=== PATIENT | male | born 1935 | race Caucasian/White ===

== ENCOUNTER 2019-01-30 14:08 | Emergency (ER) | payer MEDICARE, BC ==
[~2019-01-30] VITALS: Ht 182.9 cm; Wt 97.5 kg
[2019-01-30 14:08] VITALS: BP 174/94
--- NOTE | 2019-01-30 15:09 | RAD ---
EXAM: CHEST 1 VIEW History: Fall COMPARISON: 02/08/2007 TECHNIQUE: Single portable radiograph of the chest FINDINGS: The cardiac silhouette is unremarkable. Mild prominent bilateral interstitial lung markings likely chronic interstitial changes similar to prior exam. The costophrenic sulci are clear and well demarcated. IMPRESSION: Mild prominent bilateral interstitial lung markings likely chronic interstitial changes similar to prior exam. Electronically signed by: Jeffrey Prakash MD (01/30/2019 3:06 PM) [place] [id number]
--- NOTE | 2019-01-30 15:21 | RAD ---
CT head without contrast and CT cervical spine without contrast dated 01/30/2019. No comparison available. CLINICAL INDICATION: Pain after fall. TECHNIQUE: Contiguous axial imaging the head was performed from skull base to vertex. No contrast administered. In addition, axial imaging of the cervical spine acquired with thin cut coronal and sagittal reconstruction. One or more of the following individualized dose reduction techniques were utilized for this examination: 1. Automated exposure control 2. Adjustment of the mA and/or kV according to patient size 3. Use of iterative reconstruction technique. FINDINGS: Ventricles and sulci are mildly prominent for age. No midline shift or mass effect. Brain parenchyma is of normal attenuation. No hemorrhage or extra-axial collection. Posterior fossa and brainstem unremarkable. Mild mucosal thickening bilateral ethmoid air cells. The visualized paranasal sinuses and mastoid air cells are otherwise clear. No apparent calvarial abnormality. Images of the cervical spine were acquired from skull base to mid T2. Sagittal alignment is anatomic. Vertebral body heights are maintained. No prevertebral soft tissue swelling. Posterior elements are intact. Mild to moderate endplate hypertrophic changes throughout. Moderate disc space narrowing at C5-C6 and C6-C7 with uncovertebral spurring. Mild to moderate facet arthropathy. There is resultant moderate to severe bilateral foraminal stenosis at the C5-C6 and C6-C7 levels mild to moderate bilateral foraminal narrowing at C3-C4. Mild central stenosis at C5-C6 and C6-C7. Visualized soft tissue structures unremarkable. There are abscess chronic calcifications at the bilateral carotid bifurcation. Limited images of the lung apices are clear. IMPRESSION HEAD: 1. No evidence of acute intracranial hemorrhage or mass. 2. Mild chronic small vessel ischemic changes and atrophy. IMPRESSION CERVICAL SPINE: 1. No evidence of fracture or malalignment. 2. Moderate multilevel spondylosis. Electronically signed by: Gal Tapia MD (01/30/2019 3:17 PM) [id number]
--- NOTE | 2019-01-30 15:39 | PHYS DOC ---
Past Medical History Past Medical History: Diabetes-Type II, High Cholesterol, Hypertension, Other Additional Past Medical Histor: GOUT,ENLARGED PROSTATE Past Surgical History: No Surgical History Alcohol Use: None Drug Use: None Adult General Chief Complaint Chief Complaint: MECHANICAL FALL HPI HPI Patient is a 83 year old male who brought in by EMS cause of a fall. Patient state he was mowing the grass and does not remember anything after that but his states he was mowing the grass and lost his balance and had a fall and landed on his back without loss of consciousness but he was confused and did not remember the fall or vomiting daily today before his fall. Patient denies pain. Last tetanus immunization is unknown. Review of Systems Review of Systems Constitutional: Denies fever or chills [] Eyes: Denies change in visual acuity, redness, or eye pain [] HENT: Denies nasal congestion or sore throat [] Respiratory: Denies cough or shortness of breath [] Cardiovascular: No additional information not addressed in HPI [] GI: Denies abdominal pain, nausea, vomiting, bloody stools or diarrhea [] : Denies dysuria or hematuria [] Musculoskeletal: Denies back pain or joint pain [] Integument: Denies rash or skin lesions [] Neurologic: Denies headache, focal weakness or sensory changes [] Endocrine: Denies polyuria or polydipsia [] All other systems were reviewed and found to be within normal limits, except as documented in this note. Current Medications Current Medications Current Medications Medications (Trade) Dose Ordered Sig/Octavia Start Time Stop Time Status Last Admin Dose Admin Diphtheria/ Tetanus/Acell Pertussis (Boostrix) 0.5 ml ONCE ONCE 01/30/19 16:00 01/30/19 16:01 DC 01/30/19 16:27 0.5 ML Allergies Allergies Allergies Coded Allergies Type Severity Reaction Last Updated Verified No Known Drug Allergies 01/30/19 No Physical Exam Physical Exam Constitutional: Well developed, well nourished, no acute distress, non-toxic appearance. [] HENT: Normocephalic, atraumatic, bilateral external ears normal, oropharynx moist, no oral exudates, nose normal. [] Eyes: PERRLA, EOMI, conjunctiva normal, no discharge. [] Neck: Normal range of motion, no tenderness, supple, no stridor. [] Cardiovascular:Heart rate regular rhythm, no murmur [] Lungs & Thorax: Bilateral breath sounds clear to auscultation [] Abdomen: Bowel sounds normal, soft, no tenderness, no masses, no pulsatile masses. [] Skin: Warm, dry, no erythema, no rash. [] Back: Bilateral upper back contusion and abrasion, no tenderness, no CVA tenderness. [] Extremities: No tenderness, no cyanosis, no clubbing, ROM intact, no edema. [] Neurologic: Alert and oriented X 3, normal motor function, normal sensory function, no focal deficits noted. [] Psychologic: Affect normal, judgement normal, mood normal. [] Current Patient Data Vital Signs Vital Signs Date Time Temp Pulse Resp B/P (MAP) Pulse Ox O2 Delivery O2 Flow Rate FiO2 01/30/19 14:08 97.7 88 16 174/94 (120) 97 Room Air 97.7 EKG EKG [] Radiology/Procedures Radiology/Procedures [address] [address] IMAGING REPORT Signed PATIENT: RIP HINKLE ACCOUNT: [id number] : 1935 LOCATION: ER AGE: 83 SEX: M EXAM STATUS: PRE ER ORD. PHYSICIAN: GENE SAMUEL MD REASON: fall PROCEDURE: CHEST AP ONLY EXAM: CHEST 1 VIEW History: Fall COMPARISON: 02/08/2007 TECHNIQUE: Single portable radiograph of the chest FINDINGS: The cardiac silhouette is unremarkable. Mild prominent bilateral interstitial lung markings likely chronic interstitial changes similar to prior exam. The costophrenic sulci are clear and well demarcated. IMPRESSION: Mild prominent bilateral interstitial lung markings likely chronic interstitial changes similar to prior exam. Electronically signed by: Jeffrey Prakash MD (01/30/2019 3:06 PM) [facility] DICTATED and SIGNED BY: JEFFREY PRAKASH MD DATE: 01/30/[address] [address] IMAGING REPORT Signed PATIENT: RIP HINKLE ACCOUNT: [id number] : 1935 LOCATION: ER AGE: 83 SEX: M EXAM STATUS: PRE ER ORD. PHYSICIAN: GENE SAMUEL MD REASON: fall PROCEDURE: CT HEAD AND CERVICAL SPINE WO CT head without contrast and CT cervical spine without contrast dated 01/30/2019. No comparison available. CLINICAL INDICATION: Pain after fall. TECHNIQUE: Contiguous axial imaging the head was performed from skull base to vertex. No contrast administered. In addition, axial imaging of the cervical spine acquired with thin cut coronal and sagittal reconstruction. One or more of the following individualized dose reduction techniques were utilized for this examination: 1. Automated exposure control 2. Adjustment of the mA and/or kV according to patient size 3. Use of iterative reconstruction technique. FINDINGS: Ventricles and sulci are mildly prominent for age. No midline shift or mass effect. Brain parenchyma is of normal attenuation. No hemorrhage or extra-axial collection. Posterior fossa and brainstem unremarkable. Mild mucosal thickening bilateral ethmoid air cells. The visualized paranasal sinuses and mastoid air cells are otherwise clear. No apparent calvarial abnormality. Images of the cervical spine were acquired from skull base to mid T2. Sagittal alignment is anatomic. Vertebral body heights are maintained. No prevertebral soft tissue swelling. Posterior elements are intact. Mild to moderate endplate hypertrophic changes throughout. Moderate disc space narrowing at C5-C6 and C6-C7 with uncovertebral spurring. Mild to moderate facet arthropathy. There is resultant moderate to severe bilateral foraminal stenosis at the C5-C6 and C6-C7 levels mild to moderate bilateral foraminal narrowing at C3-C4. Mild central stenosis at C5-C6 and C6-C7. Visualized soft tissue structures unremarkable. There are abscess chronic calcifications at the bilateral carotid bifurcation. Limited images of the lung apices are clear. IMPRESSION HEAD: 1. No evidence of acute intracranial hemorrhage or mass. 2. Mild chronic small vessel ischemic changes and atrophy. IMPRESSION CERVICAL SPINE: 1. No evidence of fracture or malalignment. 2. Moderate multilevel spondylosis. Electronically signed by: Gal Tapia MD (01/30/2019 3:17 PM) [id number] DICTATED and SIGNED BY: GAL TAPIA MD DATE: 01/30/19 9566 Course & Med Decision Making Course & Med Decision Making Pertinent Imaging studies reviewed. (See chart for details) Evaluation of patient in ER showed 83-year-old female patient with a fall and amnesia after his fall. Patient had small area of contusion of bilateral upper back and was alert and oriented with unremarkable CT head and cervical spine and chest x-ray. Patient did not want a blood test and wanted to follow with his primary care physician. I've spoken with the patient and/or caregivers. I've explained the patient's condition, diagnosis and treatment plan based on information available to me at this time. I've answered the patient's and/or caregivers questions and addressed any concerns. The patient and/or caregivers have a good understanding the patient's diagnosis, condition and treatment plan as can be expected at this point. Vital signs have been stabilized. The patient's condition is stable for discharge from the emergency department. The patient will pursue further outpatient evaluation with her primary care provider or other designated consulting physician as outlined in the discharge instructions. Patient and/or caregivers are agreeable to this plan of care and follow-up instructions have been explained in detail. The patient and/or caregivers have received these instructions in written format and expressed understanding of these discharge instructions. The patient and her caregivers are aware that if any significant change in condition or worsening of symptoms should prompt him to immediately return to this of the closest emergency department. If an emergent department is not readily available I would encourage him to call 911. Hussain Disclaimer Hussain Disclaimer This electronic medical record was generated, in whole or in part, using a voice recognition dictation system. Departure Departure Impression: Primary Impression: Fall at home Additional Impressions: Concussion with loss of consciousness <= 30 min Contusion of thoracic wall Disposition: 01 HOME, SELF-CARE (at 1603) Condition: IMPROVED Patient Instructions: Concussion and Brain Injury, Contusion, Fall Prevention and Home Safety Additional Instructions: Drink plenty of liquids Follow-up with your primary care physician in 2-3 days Return to ER if not getting better Apply ice on the affected area Problem Qualifiers Primary Impression: Fall at home Encounter type: initial encounter Qualified Codes: W19.XXXA - Unspecified fall, initial encounter; Y92.009 - Unspecified place in unspecified non- institutional (private) residence as the place of occurrence of the external cause Additional Impressions: Concussion with loss of consciousness <= 30 min Encounter type: subsequent encounter Qualified Codes: S06.0X1D - Concussion with loss of consciousness of 30 minutes or less, subsequent encounter Contusion of thoracic wall Encounter type: sequela Contusion of thoracic wall detail: unspecified area of thoracic wall Qualified Codes: S20.20XS - Contusion of thorax, unspecified, sequela GENE SAMUEL MD January 30, 2019 15:39
[2019-01-30] MEDS ORDERED: DIPHTH,PERTUSS(ACELL),TET TOX 0.5 ML DISP.SYRIN. VAX IM ONE (16:00)
== END 2019-01-30 16:30 | disposition home or self-care (01) ==
LOC: ER 14:08
DX: S06.0X1A Concussion with loss of consciousness of 30 minutes or less, initial encounter (principal); S20.222A Contusion of left back wall of thorax, initial encounter; S20.221A Contusion of right back wall of thorax, initial encounter; R41.0 Disorientation, unspecified; M47.812 Spondylosis without myelopathy or radiculopathy, cervical region; E78.00 Pure hypercholesterolemia, unspecified; I10 Essential (primary) hypertension; E11.9 Type 2 diabetes mellitus without complications; M10.9 Gout, unspecified; W18.39XA Other fall on same level, initial encounter; Y93.H2 Activity, gardening and landscaping; Y92.098 Other place in other non-institutional residence as the place of occurrence of the external cause; Y99.8 Other external cause status
CPT/HCPCS: 70450; 71045; 72125; 90471; 90715; 99284-25

== ENCOUNTER → 2019-09-01 | Outpatient (CLI) | payer MEDICARE, BC ==
[~2019-09-01] MED LIST: IOHEXOL 300 MG/ML 100ML VIAL. IV ONE
[2019-09-01 08:29] LABS: CREATININE 1.4 mg/dL (0.7-1.3); GFR 48.4
--- NOTE | 2019-09-01 10:39 | RAD ---
EXAM: CTA NECK WITH AND WITHOUT CONTRAST. HISTORY: Carotid stenosis. TECHNIQUE: Computed tomographic angiography of the neck was performed before and after the intravenous administration of iodinated contrast. Three-dimensional reconstructions were also performed. COMPARISON: 02/08/2007. FINDINGS: Angiographic findings: The aortic arch has a typical branching pattern. There is no arch vessel stenosis. There is moderate calcified plaquing at the right carotid bulb extending to the origins of the internal and external carotid arteries. This results in <50% stenosis. Uncalcified plaquing at the origin of the right cervical internal carotid artery resulting <50% stenosis. Milder mostly noncalcified plaquing at the left carotid bulb extends to the origins of the left internal and external carotid arteries. These result in <50% stenosis at the origin of the cervical internal carotid artery. There are mild atherosclerotic calcifications of the right distal vertebral artery at the foramen magnum. The right vertebral artery is smaller than the left, but there are multifocal mild to moderate stenoses within its last few centimeters. Limited images of the intracranial circulation reveals moderate atherosclerotic calcifications along both cavernous internal carotid arteries without significant stenosis. Nonangiographic findings: Bone windows reveal no suspicious lesions. The lung apices demonstrate tubular/branching nodules in the left upper lobe visit with a chronic atypical infectious process. The largest nodule measures 8 x 4 mm transaxially. There are changes of bilateral cataract surgery. The parotid glands and submandibular glands are unremarkable. The thyroid gland demonstrates no suspicious lesions. There are no laryngeal or pharyngeal masses. There are no pathologically enlarged lymph nodes. IMPRESSION: 1. 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 The left vertebral artery is dominant. 2. Calcified and noncalcified plaquing at the right greater than left carotid bifurcations result in <50% stenosis at the origins of the cervical internal carotid arteries. 3. Tubular branching nodules in the left upper lobe are most likely benign and postinflammatory. PQRS Compliance Statement - Stenosis calculations for CT, MR and conventional angiography are based upon measurement of the distal ICA diameter in accordance with the NASCET methodology. Stenosis calculations for carotid ultrasound studies are derived from validated velocity criteria which are known to correlate with the NASCET methodology. *One or more of the following individualized dose reduction techniques were utilized for this examination: 1. Automated exposure control. 2. Adjustment of the mA and/or kV according to patient size. 3. Use of iterative reconstruction technique. Electronically signed by: Vicente Aguirre MD (09/01/2019 10:36 AM) [facility]
== END | disposition home or self-care (01) ==
LOC: CT 08:06
PROVIDERS: ATTEND Surgery Vascular Surgery
DX: I65.03 Occlusion and stenosis of bilateral vertebral arteries (principal); I10 Essential (primary) hypertension; E11.9 Type 2 diabetes mellitus without complications; E78.00 Pure hypercholesterolemia, unspecified; Z79.01 Long term (current) use of anticoagulants
CPT/HCPCS: 36415; 70498; 82565; Q9967